=== PATIENT | male | born 1970 | race Hispanic/Latino ===

== ENCOUNTER 2017-06-28 04:13 | Inpatient (IN) | payer MEDICARE ==
[2017-06-28 04:41] LABS: BASO # 0.03 K/mm3 (0.0-2.0); BASO % 0.5 % (0.0-3.0); EOS % 0.3 % (1.5-5.0); GRAN # 3.82 (1.4-6.5); GRAN % 59.6 % (50.0-68.0); HEMOGLOBIN 14.5 g/dL (14.0-18.0); LYMPH # 2.1 (1.2-3.4); LYMPH % 32.9 % (22.0-35.0); MEAN CELL VOLUME 92.7 fl (80.0-105.0); MEAN CORPUSCULAR HEMOGLOBIN 31.9 pg (25.0-35.0); MEAN CORPUSCULAR HGB CONC 34.4 g/dl (31.0-37.0); MEAN PLATELET VOLUME 9.1 fl (7.0-11.0); MONO # 0.4 (0.1-0.6); MONO % 6.7 % (1.0-6.0); RBC 4.55 10^6/uL (3.5-6.1); RED CELL DISTRIBUTION WIDTH 13.3 % (11.5-14.5); WHITE BLOOD COUNT 6.4 10^3/ul (4.5-11.0)
[2017-06-28 04:51] LABS: ALB/GLOB RATIO 1.4 (1.1-1.8); ALT/SGPT 31 U/L (7-56); AST/SGOT 21 U/L (17-59); BLOOD UREA NITROGEN 7 mg/dL (7-21); CALCIUM 9.9 mg/dL (8.4-10.5); GFR AFRICAN-AMERICAN > 60; GFR NON-AFRICAN AMERICAN > 60
[2017-06-28] MEDS ORDERED: oxyCODONE 5 mg Immediate Release Tab PO STA (04:55)
[2017-06-28 05:03] LABS: TROPONIN I 0.06 ng/mL
--- NOTE | 2017-06-28 05:24 | ED PDOC ---
Arrival/HPI - General Chief Complaint: Chest Pain Time Seen by Provider: 06/28/17 04:16 Historian: Patient - History of Present Illness Narrative History of Present Illness (Text): 06/28/17 04:30 47 year old male, whose past medical history includes diabetes, presents to the Emergency department by EMS complaining of left sided chest pain since early this evening. Patient was give aspirin by EMS. Patient describes the pain as sharp sensation. Patient denies any recent travel or any sick contact. Patient reports a dry cough for the past couple days, but denies any fevers, chills, shortness of breath, abdominal pain, nausea, vomiting, diarrhea, back pain, neck pain, urinary/bowel changes, headache, dizziness, or any other complaint. PMD: Angel Baker MD Time/Duration: Other (early this evening) Symptom Onset: Sudden Quality: Other (sharp) Activities at Onset: Light Context: Home Past Medical History - Provider Review Nursing Documentation Reviewed: Yes - Infectious Disease Hx of Infectious Diseases: None - Tetanus Immunization Tetanus Immunization: Unknown - Past Medical History Past Medical History: No Previous - Cardiac Hx Hypertension: Yes - Pulmonary Hx Respiratory Disorders: Yes Hx Chronic Obstructive Pulmonary Disease (COPD): Yes - Endocrine/Metabolic Hx Endocrine Disorders: Yes Hx Diabetes Mellitus Type 2: Yes - Musculoskeletal/Rheumatological Hx Musculoskeletal Disorders: Yes Hx Back Pain: Yes - Psychiatric Hx Depression: No Hx Emotional Abuse: No Hx Physical Abuse: No Hx Substance Use: No - Past Surgical History Past Surgical History: No Previous - Surgical History Hx Orthopedic Surgery: Yes - Suicidal Assessment Feels Threatened In Home Enviroment: No Family/Social History - Physician Review Nursing Documentation Reviewed: Yes Family/Social History: No Known Family HX Smoking Status: Heavy Smoker > 10 Cigarettes Daily Hx Alcohol Use: Yes Hx Substance Use: No Hx Substance Use Treatment: No Allergies/Home Meds Allergies/Adverse Reactions: Allergies No Known Allergies Allergy (Verified 08/02/16 13:01) Home Medications: Home Meds Medication Instructions Recorded Confirmed Baclofen [Baclofen] 10 mg PO DAILY 04/14/13 06/28/17 Ropinirole Hydrochloride [Requip] 1 mg PO DAILY 04/14/13 06/28/17 Buprenorphine HCl [Belbuca] 150 mcg BC DAILY 04/25/17 06/28/17 DULoxetine [Cymbalta] 30 mg PO DAILY 04/25/17 06/28/17 Gabapentin [Neurontin] 300 mg PO TID 04/25/17 06/28/17 Glipizide [Glipizide Xl] 5 mg PO DAILY 04/25/17 06/28/17 Losartan [Cozaar] 50 mg PO DAILY 04/25/17 06/28/17 Pantoprazole Sodium [Protonix] 40 mg PO DAILY 04/25/17 06/28/17 Pravastatin Sodium [Pravachol] 20 mg PO DAILY 04/25/17 06/28/17 lamoTRIgine [LaMICtal] 25 mg PO DAILY 04/25/17 06/28/17 oxyCODONE/Acetaminophen [Percocet 1 tab PO Q6 PRN 04/25/17 06/28/17 5/325 mg Tab] rOPINIRole [Requip] 2 mg PO DAILY 04/25/17 06/28/17 tiZANidine [Zanaflex] 4 mg PO TID 04/25/17 06/28/17 Review of Systems - Physician Review All systems were reviewed & negative as marked: Yes - Review of Systems Constitutional: absent: Fevers, Other (Chills) Respiratory: Cough. absent: SOB Cardiovascular: Chest Pain Gastrointestinal: absent: Abdominal Pain, Diarrhea, Nausea Genitourinary Male: absent: Dysuria, Frequency, Hematuria Musculoskeletal: absent: Back Pain, Neck Pain Neurological: absent: Headache, Dizziness Physical Exam Vital Signs Reviewed: Yes Vital Signs Temp Pulse Resp BP Pulse Ox 06/28/17 04:27 98.2 F 74 16 148/109 H 96 Temperature: Afebrile Blood Pressure: Normal Pulse: Regular Respiratory Rate: Normal Appearance: Positive for: Well-Appearing, Non-Toxic, Comfortable Pain Distress: None Mental Status: Positive for: Alert and Oriented X 3 Finger Stick Blood Glucose: 158 - Systems Exam Head: Present: Atraumatic, Normocephalic Pupils: Present: PERRL Extroacular Muscles: Present: EOMI Conjunctiva: Present: Normal Mouth: Present: Moist Mucous Membranes Neck: Present: Normal Range of Motion Respiratory/Chest: Present: Clear to Auscultation, Good Air Exchange. No: Respiratory Distress, Accessory Muscle Use Cardiovascular: Present: Regular Rate and Rhythm, Normal S1, S2. No: Murmurs Abdomen: Present: Normal Bowel Sounds. No: Tenderness, Distention, Peritoneal Signs Back: Present: Normal Inspection Upper Extremity: Present: Normal Inspection. No: Cyanosis, Edema Lower Extremity: Present: Normal Inspection. No: Edema Neurological: Present: GCS=15, CN II-XII Intact, Speech Normal Skin: Present: Warm, Dry, Normal Color. No: Rashes Psychiatric: Present: Alert, Oriented x 3, Normal Insight, Normal Concentration Medical Decision Making ED Course and Treatment: 06/28/17 04:30 Impression: 47 year old male presents complaining of sharp left sided chest pain that began early this evening. Plan: -- EKG -- Labs -- Flexeril -- CXR -- oxycodone -- Reassess and disposition Progress Notes: EKG shows Sinus at 75 BPM Interpreted by me. CXR Impression: As read by meNAD. . - Lab Interpretations Lab Results: 06/28/17 04:30 06/28/17 04:30 Lab Results 06/28/17 04:30: Sodium 142, Potassium 4.0, Chloride 103, Carbon Dioxide 26, Anion Gap 17, BUN 7, Creatinine 0.8, Est GFR ( Amer) > 60, Est GFR (Non- Af Amer) > 60, Random Glucose 153 H, Calcium 9.9, Magnesium 2.0, Total Bilirubin 0.3, AST 21, ALT 31, Alkaline Phosphatase 67, Lactate Dehydrogenase 445, Total Creatine Kinase 82, Troponin I 0.06, Total Protein 6.9, Albumin 4.0, Globulin 2.9, Albumin/Globulin Ratio 1.4 06/28/17 04:30: WBC 6.4, RBC 4.55, Hgb 14.5, Hct 42.2, MCV 92.7, MCH 31.9, MCHC 34.4, RDW 13.3, Plt Count 185, MPV 9.1, Gran % 59.6, Lymph % (Auto) 32.9, [place] % (Auto) 6.7 H, Eos % (Auto) 0.3 L, Baso % (Auto) 0.5, Gran # 3.82, Lymph # 2.1 , [place] # 0.4, Eos # 0.0, Baso # 0.03 I have reviewed the lab results: Yes - RAD Interpretation Radiology Orders: 06/28/17 04:29 CHEST PORTABLE [RAD] Stat - EKG Interpretation Interpreted by ED Physician: Yes Type: 12 lead EKG - Medication Orders Current Medication Orders: Discontinued Medications Cyclobenzaprine HCl (Flexeril) 5 mg PO STAT STA Stop: 06/28/17 04:56 Last Admin: 06/28/17 05:08 Dose: 5 mg Oxycodone HCl (Oxycodone Immediate Release Tab) 5 mg PO STAT STA Stop: 06/28/17 04:56 Last Admin: 06/28/17 05:08 Dose: 5 mg MAR Pain Assessment Document 06/28/17 05:08 RD (Rec: 06/28/17 05:08 RD [id number]) Pain Reassessment Is this a pain reassessment? No Sleep Is patient sleeping during reassessment? No Presence of Pain Presence of Pain Yes - Scribe Statement The provider has reviewed the documentation as recorded by the Fatimah Manzo Provider Scribe Attestation: All medical record entries made by the Scribe were at my direction and personally dictated by me. I have reviewed the chart and agree that the record accurately reflects my personal performance of the history, physical exam, medical decision making, and the department course for this patient. I have also personally directed, reviewed, and agree with the discharge instructions and disposition. Disposition/Present on Arrival - Present on Arrival History of DVT/PE: No History of Uncontrolled Diabetes: No Urinary Catheter: No History of Decub. Ulcer: No History Surgical Site Infection Following: None - Disposition Referrals: Angel Baker MD [Primary Care Provider] - Follow up with primary Forms: [facility] (Romanian)
[2017-06-28] MEDS ORDERED: HYDROmorphone 1 mg/ml ISec IVP STA (07:03)
--- NOTE | 2017-06-28 07:36 | ED PDOC ---
Physical Exam Vital Signs Reviewed: Yes Vital Signs Temp Pulse Resp BP Pulse Ox 06/28/17 07:23 81 20 154/98 H 94 L 06/28/17 04:27 98.2 F 74 16 148/109 H 96 Temperature: Afebrile Blood Pressure: Hypertensive Appearance: Positive for: Uncomfortable Pain Distress: Severe Mental Status: Positive for: Alert and Oriented X 3 Finger Stick Blood Glucose: 158 - Systems Exam Respiratory/Chest: Present: Clear to Auscultation. No: Respiratory Distress, Wheezes Medical Decision Making ED Course and Treatment: 06/28/17 07:32 Patient is a 47 yo male endorsed to me from previous shift. I reviewed previous studies, EKG and cxr. I re-examined patient and interviewed him. He reports to me sudden onset of left sided chest pain that woke him up from sleep. Pain is currently severe and "comes and goes". On my exam, lungs clear, no hypoxia. BP and pulse equal in both upper extremities. Pain is not palpable. Initial EKG is unremarkable although troponin is 0.06. Patient received asa prior to arrival. Due to persistent severe pain, will order ct angio as pain persistent. Mediastinum unremarkable on cxr. IV pain medication ordered. I reviewed history with family present. Patient is a smoker and a diabetic. Recent unremarkable stress test. Due to persistent pain will admit to telemetry hospitalist service, covering for Dr. Baker his PMD. Will consult his optical scientist Dr. Justin. Treatment plan reviewed with patient and family, agreeable to disposition plan. Case d/w Dr. Arizmendi. - Lab Interpretations Lab Results: 06/28/17 04:30 06/28/17 04:30 Lab Results 06/28/17 04:30: Sodium 142, Potassium 4.0, Chloride 103, Carbon Dioxide 26, Anion Gap 17, BUN 7, Creatinine 0.8, Est GFR ( Amer) > 60, Est GFR (Non- Af Amer) > 60, Random Glucose 153 H, Calcium 9.9, Magnesium 2.0, Total Bilirubin 0.3, AST 21, ALT 31, Alkaline Phosphatase 67, Lactate Dehydrogenase 445, Total Creatine Kinase 82, Troponin I 0.06, Total Protein 6.9, Albumin 4.0, Globulin 2.9, Albumin/Globulin Ratio 1.4 06/28/17 04:30: WBC 6.4, RBC 4.55, Hgb 14.5, Hct 42.2, MCV 92.7, MCH 31.9, MCHC 34.4, RDW 13.3, Plt Count 185, MPV 9.1, Gran % 59.6, Lymph % (Auto) 32.9, [place] % (Auto) 6.7 H, Eos % (Auto) 0.3 L, Baso % (Auto) 0.5, Gran # 3.82, Lymph # 2.1 , [place] # 0.4, Eos # 0.0, Baso # 0.03 - RAD Interpretation Radiology Orders: 06/28/17 04:29 CHEST PORTABLE [RAD] Stat 06/28/17 07:25 ANGIO CHEST PE PROTOCOL [CT] Stat - Medication Orders Current Medication Orders: Discontinued Medications Cyclobenzaprine HCl (Flexeril) 5 mg PO STAT STA Stop: 06/28/17 04:56 Last Admin: 06/28/17 05:08 Dose: 5 mg Hydromorphone HCl (Dilaudid) 1 mg IVP STAT STA Stop: 06/28/17 07:04 Last Admin: 06/28/17 07:20 Dose: 1 mg CHANELL Pain Assessment Document 06/28/17 07:20 [email or web address] (Rec: 06/28/17 07:23 [email or web address] [id number]) Pain Reassessment Is this a pain reassessment? No Sleep Is patient sleeping during reassessment? No Presence of Pain Presence of Pain Yes Pain Scale Used Pain Scale Used Numeric Location Pain Location Body Site Generalized Description Description Constant Intensity of Pain at present 6 Pain Behavior Guarding Facial Grimacing Aggravating Factors Changing Position Alleviating Factors/Management Position Change Techniques Alleviating Factors Medication IVP Administration Document 06/28/17 07:20 [email or web address] (Rec: 06/28/17 07:23 [email or web address] [id number]) Charges for Administration # of IVP Administrations 1 Oxycodone HCl (Oxycodone Immediate Release Tab) 5 mg PO STAT STA Stop: 06/28/17 04:56 Last Admin: 06/28/17 05:08 Dose: 5 mg MAR Pain Assessment Document 06/28/17 05:08 RD (Rec: 06/28/17 05:08 RD [id number]) Pain Reassessment Is this a pain reassessment? No Sleep Is patient sleeping during reassessment? No Presence of Pain Presence of Pain Yes Disposition/Present on Arrival - Present on Arrival Any Indicators Present on Arrival: No History of DVT/PE: No History of Uncontrolled Diabetes: No Urinary Catheter: No History of Decub. Ulcer: No History Surgical Site Infection Following: None - Disposition Have Diagnosis and Disposition been Completed?: Yes Diagnosis: Chest pain Disposition: HOSPITALIZED Disposition Time: 07:36 Patient Plan: Admission, Telemetry Condition: FAIR Discharge Instructions (ExitCare): Chest Pain (ED) Referrals: Angel Baker MD [Primary Care Provider] - Follow up with primary Forms: [facility] (Kiswahili)
[2017-06-28] MEDS ORDERED: Oxycodone/Acetaminophen 5/325 mg Tab PO PRN (08:27)
--- NOTE | 2017-06-28 08:42 | CT ---
PROCEDURE: CT Chest with contrast (Pulmonary Angiogram) HISTORY: r/o PE COMPARISON: Plain radiographs performed earlier the same day. TECHNIQUE: Axial computed tomography images were obtained of the chest in the pulmonary arterial phase of enhancement. Coronal and sagittal reformatted images were created and reviewed. Intravenous contrast dose: 150 mL Omnipaque 350 Radiation dose: Total exam DLP = 469.03 mGy-cm. This CT exam was performed using one or more of the following dose reduction techniques: Automated exposure control, adjustment of the mA and/or kV according to patient size, and/or use of iterative reconstruction technique. FINDINGS: PULMONARY ARTERIES: Examination is of suboptimal diagnostic quality for evaluation of pulmonary embolism due to missed bolus. Allowing for this, there is no large central pulmonary embolism. AORTA: No evidence of dissection. No thoracic aortic aneurysm. LUNGS: The lungs are well inflated. There is dependent atelectasis in the posterior lower lobes. There is a bulla in the superior segment of the right lower lobe. No evidence of suspicious nodule, mass or consolidation there are no endobronchial lesions. PLEURAL SPACES: No pleural effusions or pneumothorax. HEART: The heart is normal in size. No pericardial effusion. There atherosclerotic calcifications in the left anterior descending coronary artery LYMPH NODES: No pathologic lymphadenopathy. BONES, CHEST WALL: Within normal limits for the patient's age. No fracture or destructive lesion OTHER FINDINGS: There is apparent mild circumferential mural thickening in the distal esophagus. The adrenal glands are normal. No other significant abnormality in the visualized abdomen. IMPRESSION: 1. Examination is of suboptimal diagnostic quality for evaluation of pulmonary embolism due to missed bolus. Allowing for this, no large central pulmonary embolism. 2. No evidence of consolidation, pleural effusion or pneumothorax. 3. Apparent circumferential mural thickening in the distal esophagus is nonspecific and could be related to underdistention however nonspecific esophagitis cannot be excluded. If clinically indicated, please correlate with EGD.
--- NOTE | 2017-06-28 08:44 | CP.PCM.HP ---
Addendum entered and electronically signed by Pablito Ding DO 06/28/17 09: 58: Patient reevaluated with active chest pain. 2nd troponin elevated. Will start patient on Plavix, Heparin drip, metoprolol, and Morphine prn for chest pain. Echocardiogram ordered. Nursing staff placed call to [employer]ing Machine [employer]. Original Note: <Pablito Ding - Last Filed: 06/28/17 08:45> History of Present Illness - History of Present Illness History of Present Illness: 47 year old male with past medical history of hypertension, diabetes, and dyslipidemia presents with sudden onset chest pain 4 hours ago. Patient states she was awoken from sleep with severe left sided chest pain that radiated to his jaw and back. Pain is intermittent in nature. Pain is alleviated by pain medication prescribed to the patient. He has never had a pain like this before. Patient immediately called the ambulance and was brought to the hospital. Patient received Aspirin in the ambulance. Patient is being followed by Dr. Justin as an outpatient. Patient recently had a normal stress test 2 months ago. Patient also had an echocardiogram which demonstrated an EF of 61% and no acute abnormalities. 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 Denies current chest pain, shortness of breath , nausea, vomiting, diarrhea, changes in vision, double vision, fever, chills, urinary/bladder incontinence, dysuria. PMD: Dr. Baker Pharmacy: [facility] in [place] Past Medical History: Hypertension, diabetes, and dyslipidemia Surgical history: Back surgery, right fibula fracture surgery Family medical history: Hypertension Social history: Current smoker, denies alcohol or illicit drug use Allergies: None Medications: Reviewed, as per MAR Present on Admission - Present on Admission Any Indicators Present on Admission: No Review of Systems - Review of Systems Review of Systems: 12 point ROS as per HPI, otherwise negative Past Patient History - Infectious Disease Hx of Infectious Diseases: None - Tetanus Immunizations Tetanus Immunization: Unknown - Past Social History Smoking Status: Heavy Smoker > 10 Cigarettes Daily - CARDIAC Hx Hypertension: Yes - PULMONARY Hx Respiratory Disorders: Yes Hx Chronic Obstructive Pulmonary Disease (COPD): Yes - ENDOCRINE/METABOLIC Hx Endocrine Disorders: Yes Hx Diabetes Mellitus Type 2: Yes - MUSCULOSKELETAL/RHEUMATOLOGICAL Hx Musculoskeletal Disorders: Yes Hx Back Pain: Yes - PSYCHIATRIC Hx Depression: No Hx Emotional Abuse: No Hx Physical Abuse: No Hx Substance Use: No - SURGICAL HISTORY Hx Orthopedic Surgery: Yes Meds Allergies/Adverse Reactions: Allergies Allergy/AdvReac Type Severity Reaction Status Date / Time No Known Allergies Allergy Verified 08/02/16 13:01 Physical Exam - Constitutional Appears: Non-toxic, No Acute Distress - Head Exam Head Exam: ATRAUMATIC, NORMAL INSPECTION, NORMOCEPHALIC - Eye Exam Eye Exam: EOMI, Normal appearance - ENT Exam ENT Exam: Mucous Membranes Moist, Normal Exam - Neck Exam Neck exam: Positive for: Normal Inspection. Negative for: Lymphadenopathy - Respiratory Exam Respiratory Exam: Decreased Breath Sounds, NORMAL BREATHING PATTERN. absent: Chest Wall Tenderness, Rales, Rhonchi, Wheezes - Cardiovascular Exam Cardiovascular Exam: RRR, +S1, +S2 - GI/Abdominal Exam GI & Abdominal Exam: Normal Bowel Sounds, Soft. absent: Tenderness - Extremities Exam Extremities exam: Positive for: normal inspection. Negative for: calf tenderness, pedal edema - Expanded Neurological Exam Expanded Neuro motor strength exam: Left Upper Extremity: 5, Right Upper Extremity: 5, Left Lower Extremity: 2/1, Right Lower Extremity: 3 - Psychiatric Exam Psychiatric exam: Normal Affect, Normal Mood - Skin Skin Exam: Intact, Normal Color, Warm Results - Vital Signs Recent Vital Signs: Last Vital Signs Temp 98.2 F 06/28/17 04:27 Pulse 81 06/28/17 07:23 Resp 20 06/28/17 07:23 BP 154/98 H 06/28/17 07:23 Pulse Ox 94 L 06/28/17 07:23 - Labs Result Diagrams: 06/28/17 04:30 06/28/17 04:30 Labs: Laboratory Results - last 24 hr 06/28/17 06/28/17 06/28/17 04:27 04:30 04:30 WBC 6.4 RBC 4.55 Hgb 14.5 Hct 42.2 MCV 92.7 MCH 31.9 MCHC 34.4 RDW 13.3 Plt Count 185 MPV 9.1 Gran % 59.6 Lymph % (Auto) 32.9 [place] % (Auto) 6.7 H Eos % (Auto) 0.3 L Baso % (Auto) 0.5 Gran # 3.82 Lymph # 2.1 Powell # 0.4 Eos # 0.0 Baso # 0.03 Sodium 142 Potassium 4.0 Chloride 103 Carbon Dioxide 26 Anion Gap 17 BUN 7 Creatinine 0.8 Est GFR ( Amer) > 60 Est GFR (Non-Af Amer) > 60 POC Glucose (mg/dL) 158 H Random Glucose 153 H Calcium 9.9 Magnesium 2.0 Total Bilirubin 0.3 AST 21 ALT 31 Alkaline Phosphatase 67 Lactate Dehydrogenase 445 Total Creatine Kinase 82 Troponin I 0.06 Total Protein 6.9 Albumin 4.0 Globulin 2.9 Albumin/Globulin Ratio 1.4 Assessment & Plan - Assessment and Plan (Free Text) Plan: 47 year old male with past medical history of hypertension, diabetes, and dyslipidemia presents with chest pain rule out ACS. Patient also received CTA of the chest in the ED to evaluate for a PE, final results pending, will follow up. Patient will have Dr. Justin consulted, as he sees him as an outpatient. Will trend troponins at this time. 1. Chest pain r/o ACS Initial troponin indeterminate, 0.06, will trend EKG is NSR with no ST abnormalities Nitroglycerin added for chest pain prn Lipid panel ordered Cardiology consulted, Dr. Justin 2. Diabetes Hold home antihyperglycemics Insulin sliding scale Continue Cymbalta and Neurontin HgA1c ordered 3. Dyslipidemia Atorvastatin started Lipid panel ordered 4. Hypertension Continue Cozaar 5. Chronic back pain Continue Percocet and Lamictal Continue Tizanidine 6. Tobacco use Counseled on abstinence Nicotine patch ordered 7. Prophylaxis Protonix Heparin Timur, PGY-2 <Raven Arizmendi - Last Filed: 06/28/17 16:38> Results - Vital Signs Recent Vital Signs: Last Vital Signs Temp 97.8 F 06/28/17 13:20 Pulse 78 06/28/17 16:05 Resp 20 06/28/17 16:05 BP 148/88 06/28/17 16:05 Pulse Ox 95 06/28/17 09:00 - Labs Result Diagrams: 06/28/17 04:30 06/28/17 04:30 Labs: Laboratory Results - last 24 hr 06/28/17 06/28/17 06/28/17 08:05 08:05 14:10 POC Glucose (mg/dL) 99 Troponin I 0.13 H* D Triglycerides 129 Cholesterol 149 LDL Cholesterol Direct 101 HDL Cholesterol 32 06/28/17 16:05 POC Glucose (mg/dL) 131 H Troponin I Triglycerides Cholesterol LDL Cholesterol Direct HDL Cholesterol Attending/Attestation - Attestation I have personally seen and examined this patient.: Yes I have fully participated in the care of the patient.: Yes I have reviewed all pertinent clinical information: Yes Notes (Text): 06/28/17 16:34 Patient was seen and examined with caregivers non medical. Agreed with assessment and plan. 47 year old male with past medical history of hypertension, diabetes, hyperlipidemia , and chronic back pain is admitted with chest pain , found to have NSEMI, started asa/Plavix/Metoprolol/lipitor and IV heparin.Patient was evaluated by cardiology Dr.Peter Rich and underwent cardiac catherization, and had LAD stent placed.We will monitor patient in telemetry. Management plan was discussed in detail with patient. Education was provided.
[2017-06-28 09:05] LABS: HDL CHOLESTEROL 32 mg/dL (29-60)
--- NOTE | 2017-06-28 09:05 | RAD ---
HISTORY: Chest pain COMPARISON: 08/21/2015. FINDINGS: LUNGS: The lungs are hyperinflated and there is peribronchial thickening with chronic changes in both lungs. There is no focal consolidation. PLEURA: No significant pleural effusion identified, no pneumothorax apparent. CARDIOVASCULAR: Normal. OSSEOUS STRUCTURES: No significant abnormalities. VISUALIZED UPPER ABDOMEN: Normal. OTHER FINDINGS: None. IMPRESSION: No active pulmonary disease. COPD.
[2017-06-28 09:16] LABS: LDL CHOLESTEROL 101 mg/dL (0-129)
[2017-06-28] MEDS ORDERED: Morphine 5 MG/ML SYRINGE IVP PRN (10:00)
[2017-06-28] MEDS ORDERED: Heparin25000 units/250ml 1/2NS 25,000 UNITS/250 ML BAG IV SCH (10:00)
[2017-06-28 10:57] VITALS: BMI 37.0
[2017-06-28] MEDS ORDERED: Eptifibatide 20 mg/10mL Inj IVP ONE ×3 (11:04→11:11)
[2017-06-28] MEDS ORDERED: Phenylephrine 10 mg/ml Inj ONE (11:06)
[2017-06-28] MEDS ORDERED: Lidocaine 2% Inj (20ml) ONE (11:06)
[2017-06-28] MEDS ORDERED: HEPARIN SODIUM/NS 1,000 ML IV ONE (11:07)
[2017-06-28] MEDS ORDERED: Iodixanol 320 MG/ML 200 ML BOTTLE IV ONE (11:07)
[2017-06-28] MEDS ORDERED: Iodixanol 320 MG/ML 100 ML BOTTLE IV ONE (11:07)
[2017-06-28] MEDS ORDERED: Iohexol 350mgl/ml 50 ML ONE (11:07)
[2017-06-28] MEDS ORDERED: Nitroglycerin 50mg in D5W 0 MG/0 ML BOTTLE IV ONE (11:07)
[2017-06-28] MEDS ORDERED: Midazolam 2 MG/2 ML VIAL ONE ×2 (11:07→11:31)
[2017-06-28] MEDS ORDERED: Eptifibatide 0.75 mg/ml 75 MG/100 ML BOTTLE IV SCH (11:15)
[2017-06-28] MEDS: Insulin Reg-MEDIUM-Coverage SC SCH ×3 (11:52→21:47)
[2017-06-28] MEDS ORDERED: Sodium Chloride 0.9% 1,000 ML IV SCH (13:15)
[2017-06-28] MEDS ORDERED: Morphine 2 mg/ml ISec IVP STA (14:28)
[2017-06-28] MEDS ORDERED: Morphine 5 MG/ML SYRINGE IVP STA (14:35)
--- NOTE | 2017-06-28 15:40 | CARD ---
APPROVED REPORT EKG Measurement Heart [id number] [place] 146P0 [id number] <Conclusion> Normal sinus rhythm Normal ECG
--- NOTE | 2017-06-28 15:47 | CARD ---
APPROVED REPORT EKG Measurement Heart [id number] <Conclusion> Normal sinus rhythm Cannot rule out Anterior infarct, age undetermined Abnormal ECG
--- NOTE | 2017-06-28 15:54 | CARD ---
APPROVED REPORT EKG Measurement Heart [id number] <Conclusion> Normal sinus rhythm Normal ECG
[2017-06-28] MEDS: Oxycodone/Acetaminophen 10/325 mg Tab PO PRN (19:49)
[2017-06-28] MEDS: BUPRENORPHINE 150 MCG SL SCH (21:38)
--- NOTE | 2017-06-29 00:58 | CARDCATH ---
PROCEDURE DATE: 06/29/2017 HISTORY The patient is a 47-year-old male who was an active smoker and suffers from hypertension and diabetes mellitus who presents with unstable angina. This morning, the patient continues to experience angina at rest. His troponins are found to be elevated. The patient was brought to the [facility] under emergency conditions. In the [facility], the patient developed chest pain with evidence for ST elevations, it was done under emergency conditions. PROCEDURE: Left heart catheterization with coronary arteriography and left ventriculogram followed by PTCA and stent of two lesions in the LAD. The right femoral artery was cannulated with a 6-Lithuanian sheath. There were no complications. The findings on catheterization revealed a left main artery that was unremarkable. The circumflex artery and obtuse marginal branches were free of significant disease. The LAD in its proximal portion revealed 80% stenosis. This was followed by a tandem lesion at the takeoff of a diagonal vessel which revealed a 99% stenosis with an intracoronary thrombus noted. The right coronary artery was selectively cannulized and found to be a dominant vessel. The RCA was free of significant disease. LV function revealed hypokinetic anterior apical segment. The EF is estimated to be approximately 35% to 40%. The patient was started on intravenous Integrilin, IV Angiomax. On the fluoroscopic guide, the guiding catheter was placed in the ostium of the left main artery. An 0.014 ATW wire was used to cross both lesions in the LAD. A second wire was placed into the diagonal vessel. A 2.0 balloon was utilized to predilate the lesions, proximal and mid. A 3.5 x 9 mm drug-eluting stent was placed and deployed in the mid LAD and a 3.5 x 12 mm drug-eluting stent was placed and deployed in the proximal lesion. Repeat coronary arteriography revealed an excellent result with no residual stenosis and INDY-3 flow down the LAD. There was pinching of the ostium of the diagonal vessels through the mid LAD stent. However, there was INDY-3 flow down the diagonal vessel with expectations of return of flow down the diagonal vessel. The patient tolerated the procedure well. Angio-Seal was used to close the femoral artery site. The AngioSeal did not result in full hemostasis and manual compression was used to finish hemostasis. ADDENDUM I performed moderate sedation which included the presence of an independent trained observer that assisted in monitoring the patient's level of consciousness and physiologic status. After administration of Versed and fentanyl, my intra-service time was 30 minutes. In summary, the procedure was an emergency cardiac cath and PTCA. The PTCA was successful of 2 cortical lesions in the proximal and mid LAD with evidence of intracoronary thrombus. Cardiac catheterization revealed single-vessel CAD with two critical lesions in the LAD with evidence of intracoronary thrombus as well as an anterior apical wall motion abnormality with an EF of approximately 35% to 40%. Given these findings, the patient will need to remain on aspirin and Plavix. The Integrilin and the Angiomax were discontinued immediately once hemostasis was not obtained with AngioSeal. The patient was transferred to the floor in stable condition. Cesar West MD
[2017-06-29] MEDS: Oxycodone/Acetaminophen 10/325 mg Tab PO PRN ×4 (02:28→20:24)
[2017-06-29] MEDS ORDERED: Pantoprazole 40 mg EC Tab PO SCH (06:00)
[2017-06-29 07:41] LABS: HEMOGLOBIN 15.8 g/dL (14.0-18.0); MEAN CORPUSCULAR HEMOGLOBIN 31.7 pg (25.0-35.0); MEAN CORPUSCULAR HGB CONC 34.8 g/dl (31.0-37.0); MEAN PLATELET VOLUME 9.4 fl (7.0-11.0); RBC 4.99 10^6/uL (3.5-6.1); RED CELL DISTRIBUTION WIDTH 13.3 % (11.5-14.5); WHITE BLOOD COUNT 11.6 10^3/ul (4.5-11.0)
[2017-06-29] MEDS: Insulin Reg-MEDIUM-Coverage SC SCH ×4 (08:10→21:28)
[2017-06-29 08:28] LABS: ALB/GLOB RATIO 1.3 (1.1-1.8); ALBUMIN 4.2 g/dL (3.0-4.8); ALT/SGPT 31 U/L (7-56); AST/SGOT 44 U/L (17-59); BLOOD UREA NITROGEN 8 mg/dL (7-21); GFR AFRICAN-AMERICAN > 60; GFR NON-AFRICAN AMERICAN > 60
[2017-06-29] MEDS: BUPRENORPHINE 150 MCG SL SCH ×2 (09:18→22:18)
--- NOTE | 2017-06-29 11:35 | PN ---
DATE: 06/29/2017 CARDIOLOGY FOLLOWUP SUBJECTIVE: The patient is chest pain free. PHYSICAL EXAMINATION: VITAL SIGNS: Blood pressure is 126/65, heart rate in the 80s. NECK: Negative JVD. LUNGS: Without rales. HEART: S1, S2. ABDOMEN: The right groin site reveals mild ecchymoses without ischemia noted. LABORATORY DATA: Reveals hemoglobin of 15.8. Chemistries, BUN and creatinine unremarkable. Troponins peaked at 3.02. IMPRESSION: 1. Status post non-ST elevation myocardial infarction. 2. Status post emergency percutaneous transluminal coronary angioplasty and stent of 2 lesions in the left anterior descending with intracoronary thrombus. 3. Coronary artery disease. 4. Hypercholesterolemia. PLAN: Given these findings, the patient had difficulty urinating yesterday. We will DC his [place] today. We will begin ambulation. Cesar West MD
--- NOTE | 2017-06-29 14:20 | CP.PCM.PN ---
<Ham Nix - Last Filed: 06/29/17 14:10> Subjective - Date & Time of Evaluation Date of Evaluation: 06/29/17 Time of Evaluation: 14:10 - Subjective Subjective: Medicine Progress Note: Patient seen and assessed at bedside. Patient reports that overnight, he found it difficult to refrain from moving, as he has chronic LBP and lying down exacerbates this pain. For this he was given a stat dose of Xanax to prevent irritation and possible hematoma formation at right groin cath insertion site Currently, however, he denies any LBP or any other complaints. He denies fever, chills, headache, chest pain, palpitations, SOB, cough, abdominal pain, N/V/D/C , burning/pain with urination, or any skin changes. Objective - Vital Signs/Intake and Output Vital Signs (last 24 hours): Temp Pulse Resp BP Pulse Ox 98.1 F 82 20 132/79 94 L 06/29/17 11:57 06/29/17 11:57 06/29/17 11:57 06/29/17 11:57 06/29/17 06:00 Intake and Output: 06/29/17 06/29/17 06:59 18:59 Intake Total 240 Output Total 3200 Balance -2960 - Medications Medications: Current Medications Aspirin (Ecotrin) 81 mg PO DAILY [facility] Last Admin: 06/29/17 09:18 Dose: 81 mg Atorvastatin Calcium (Lipitor) 40 mg PO DIN [facility] Last Admin: 06/28/17 17:44 Dose: 40 mg Clopidogrel Bisulfate (Plavix) 75 mg PO DAILY [facility] Last Admin: 06/29/17 09:18 Dose: 75 mg Duloxetine HCl (Cymbalta) 30 mg PO DAILY [facility] Last Admin: 06/29/17 09:18 Dose: 30 mg Gabapentin (Neurontin) 800 mg PO TID [facility] PRN Reason: Protocol Last Admin: 06/29/17 01:31 Dose: 800 mg Home Med (Home Med) 1 unit SL Q12 [facility] Last Admin: 06/29/17 09:18 Dose: 1 unit Insulin Human Regular (Humulin R Med) 0 units SC ACHS [facility] PRN Reason: Protocol Last Admin: 06/29/17 11:54 Dose: Not Given Lamotrigine (Lamictal) 25 mg PO DAILY [facility] PRN Reason: Protocol Last Admin: 06/29/17 09:18 Dose: 25 mg Losartan Potassium (Cozaar) 50 mg PO DAILY [facility] Last Admin: 06/29/17 09:19 Dose: 50 mg Metoprolol Tartrate (Lopressor) 25 mg PO BID [facility] Last Admin: 06/29/17 09:19 Dose: 25 mg Nicotine (Nicoderm Cq) 1 patch TD DAILY [facility] Last Admin: 06/29/17 09:16 Dose: 1 patch Ondansetron HCl (Zofran Inj) 4 mg IVP Q4H PRN PRN Reason: Nausea/Vomiting Oxycodone/Acetaminophen (Percocet 10/325 Mg Tab) 1 tab PO Q6H PRN PRN Reason: Pain, moderate (4-7) Last Admin: 06/29/17 08:18 Dose: 1 tab Tizanidine HCl (Zanaflex) 4 mg PO TID [facility] Last Admin: 06/29/17 09:18 Dose: 4 mg - Labs Labs: 06/29/17 06:30 06/29/17 06:30 - Constitutional Appears: Non-toxic, No Acute Distress - Head Exam Head Exam: ATRAUMATIC, NORMAL INSPECTION, NORMOCEPHALIC - Eye Exam Eye Exam: EOMI, Normal appearance, PERRL. absent: Conjunctival injection, Nystagmus, Periorbital swelling, Periorbital tenderness, Scleral icterus Pupil Exam: NORMAL ACCOMODATION, PERRL - ENT Exam ENT Exam: Mucous Membranes Moist, Normal Exam - Neck Exam Neck Exam: Full ROM, Normal Inspection. absent: Lymphadenopathy - Respiratory Exam Respiratory Exam: Clear to Ausculation Bilateral, NORMAL BREATHING PATTERN. absent: Accessory Muscle Use, Chest Wall Tenderness, Decreased Breath Sounds, Prolonged Expiratory Phase, Rales, Rhonchi, Wheezes, Respiratory Distress, Stridor - Cardiovascular Exam Cardiovascular Exam: REGULAR RHYTHM, RRR, +S1, +S2. absent: Bradycardia, Tachycardia, Clicks, Diastolic murmur, Gallop, Irregular Rhythm, JVD, Rubs, +S4 , Murmur - GI/Abdominal Exam GI & Abdominal Exam: Soft, Normal Bowel Sounds. absent: Bruit, Distended, Firm , Guarding, Rigid, Tenderness, Diminished Bowel Sounds, Hernia, Hyperactive Bowel Sounds, Hypoactive Bowel Sounds, Organomegaly, Pulsatile Mass, Rebound, Mass - Extremities Exam Extremities Exam: Full ROM, Normal Capillary Refill. absent: Calf Tenderness, Joint Swelling, Normal Inspection, Pedal Edema, Tenderness Additional comments: Right groin cath insertion site with no signs of surrounding infection or hematoma but surrounding ecchymosis noted - Back Exam Back Exam: Full ROM, NORMAL INSPECTION. absent: CVA tenderness (L), CVA tenderness (R), muscle spasm, paraspinal tenderness, rash noted, tenderness, vertebral tenderness - Neurological Exam Neurological Exam: Alert, Awake, CN II-XII Intact, Oriented x3 - Psychiatric Exam Psychiatric exam: Normal Affect, Normal Mood - Skin Skin Exam: Dry, Intact, Normal Color, Warm Assessment and Plan - Assessment and Plan (Free Text) Assessment: 47 year old male with past medical history significant for HTN, DM2 and HLD who presents with NSTEMI. Patient received CTA of the chest in the ED to evaluate for a PE and was found to have no PE. Patient underwent cardiac cath with two ANTONIA placed in LAD by Dr. West. Plan: 1. NSTEMI -EKG showed signs of anterior infarct -Serial troponins found to be elevated at 0.06, 0.13, 3.02 and 2.97 -Cardiac Cath with Dr. West who placed two ANTONIA in LAD -Continue ASA, Plavix, and Lopressor -Continue wound care with pressure dressing to right groin cath insertion site -Cardiology consulted, all recommendations appreciated 2. DM2 with associate Diabetic Neuropathy -SSI-Medium and Accuchecks ACHS -Carbohydrate Consistent Diet -Continue Neurontin and Cymbalta -A1c 7.1 3. HTN -Continue Cozaar 4. HLD -Continue Lipitor -Lipid panel within normal limits 5. Chronic LBP -Continue Percocet, Lamictal and Tizanidine 6. Tobacco Abuse/Withdrawal -Nicotine CQ 14mg/day -Abstinence counseling GI Prophylaxis: Protonix DVT Prophylaxis: Heparin Patient seen and case discussed with attending, Dr. Arizmendi. <Raven Arizmendi - Last Filed: 06/29/17 15:11> Objective - Vital Signs/Intake and Output Vital Signs (last 24 hours): Temp Pulse Resp BP Pulse Ox 98.1 F 82 20 132/79 94 L 06/29/17 11:57 06/29/17 11:57 06/29/17 11:57 06/29/17 11:57 06/29/17 06:00 Intake and Output: 06/29/17 06/29/17 06:59 18:59 Intake Total 240 Output Total 3200 Balance -2960 - Medications Medications: Current Medications Aspirin (Ecotrin) 81 mg PO DAILY [facility] Last Admin: 06/29/17 09:18 Dose: 81 mg Atorvastatin Calcium (Lipitor) 40 mg PO DIN [facility] Last Admin: 06/28/17 17:44 Dose: 40 mg Clopidogrel Bisulfate (Plavix) 75 mg PO DAILY [facility] Last Admin: 06/29/17 09:18 Dose: 75 mg Duloxetine HCl (Cymbalta) 30 mg PO DAILY [facility] Last Admin: 06/29/17 09:18 Dose: 30 mg Gabapentin (Neurontin) 800 mg PO TID [facility] PRN Reason: Protocol Last Admin: 06/29/17 14:09 Dose: 800 mg Home Med (Home Med) 1 unit SL Q12 [facility] Last Admin: 06/29/17 09:18 Dose: 1 unit Insulin Human Regular (Humulin R Med) 0 units SC ACHS [facility] PRN Reason: Protocol Last Admin: 06/29/17 11:54 Dose: Not Given Lamotrigine (Lamictal) 25 mg PO DAILY [facility] PRN Reason: Protocol Last Admin: 06/29/17 09:18 Dose: 25 mg Losartan Potassium (Cozaar) 50 mg PO DAILY [facility] Last Admin: 06/29/17 09:19 Dose: 50 mg Metoprolol Tartrate (Lopressor) 25 mg PO BID [facility] Last Admin: 06/29/17 09:19 Dose: 25 mg Nicotine (Nicoderm Cq) 1 patch TD DAILY [facility] Last Admin: 06/29/17 09:16 Dose: 1 patch Ondansetron HCl (Zofran Inj) 4 mg IVP Q4H PRN PRN Reason: Nausea/Vomiting Oxycodone/Acetaminophen (Percocet 10/325 Mg Tab) 1 tab PO Q6H PRN PRN Reason: Pain, moderate (4-7) Last Admin: 06/29/17 14:08 Dose: 1 tab Tizanidine HCl (Zanaflex) 4 mg PO TID [facility] Last Admin: 06/29/17 14:09 Dose: 4 mg - Labs Labs: 06/29/17 06:30 06/29/17 06:30 Attending/Attestation - Attestation I have personally seen and examined this patient.: Yes I have fully participated in the care of the patient.: Yes I have reviewed all pertinent clinical information, including history, physical exam and plan: Yes Notes (Text): 06/29/17 15:08 Patient was seen and examined with medical imaging technologist. Agreed with assessment and plan. 47 year old male with PMH of hypertension, diabetes, hyperlipidemia , and chronic back pain was admitted with chest pain , found to have NSEMI, and underwent cardiac catherization, yesterday , had angioplasty and stent of Mid LAD.Patient remain stable after the procedure.He is pain free after the procedure. Continue ASA/Plavix/Metoprolol and lipitor Echo is pending, we will follow up Echo results. Management plan was discussed in detail with patient. Education was provided. 4 06/29/17 15:11
--- NOTE | 2017-06-29 19:25 | CARD ---
APPROVED REPORT EKG Measurement Heart [id number] DC [id number] <Conclusion> Normal sinus rhythm T wave abnormality, consider anterolateral ischemia Prolonged QT Abnormal ECG
[2017-06-30] MEDS: Oxycodone/Acetaminophen 10/325 mg Tab PO PRN ×2 (02:17→08:18)
[2017-06-30 06:23] VITALS: RESP 20; O2SAT 97
[2017-06-30 06:36] LABS: HEMOGLOBIN 16.2 g/dL (14.0-18.0); MEAN CELL VOLUME 90.9 fl (80.0-105.0); MEAN CORPUSCULAR HEMOGLOBIN 31.3 pg (25.0-35.0); MEAN CORPUSCULAR HGB CONC 34.4 g/dl (31.0-37.0); MEAN PLATELET VOLUME 9.4 fl (7.0-11.0); RBC 5.18 10^6/uL (3.5-6.1); RED CELL DISTRIBUTION WIDTH 13.4 % (11.5-14.5); WHITE BLOOD COUNT 8.9 10^3/ul (4.5-11.0)
[2017-06-30 07:16] LABS: ALB/GLOB RATIO 1.2 (1.1-1.8); ALBUMIN 4.2 g/dL (3.0-4.8); ALT/SGPT 35 U/L (7-56); AST/SGOT 30 U/L (17-59); BLOOD UREA NITROGEN 11 mg/dL (7-21); CALCIUM 10.1 mg/dL (8.4-10.5); GFR AFRICAN-AMERICAN > 60; GFR NON-AFRICAN AMERICAN > 60
[2017-06-30] MEDS: Insulin Reg-MEDIUM-Coverage SC SCH ×2 (07:30→11:30)
[2017-06-30] MEDS: BUPRENORPHINE 150 MCG SL SCH (09:36)
[2017-06-30] MEDS ORDERED: Potassium Chloride 20 mEq ER Tab PO ONE (11:52)
[2017-06-30 12:58] VITALS: BP 110/74; PULSE 77; TEMP 97.7
--- NOTE | 2017-06-30 13:27 | PN ---
DATE: REASON FOR CONSULTATION: Coronary artery disease, active tobacco abuse, status post NSTEMI. emergency angioplasty and PTCA of LAD with ANTONIA and intracoronary thrombus. SUBJECTIVE: The patient denies any chest pain, shortness of breath or any palpitation. Wants to go home. OBJECTIVE: GENERAL: Not in apparent distress. VITAL SIGNS: As follows, temperature afebrile, heart rate 100, and blood pressure 115/57. HEENT: PERRLA. Extraocular muscles intact. NECK: Supple. No carotid bruits or thyromegaly. CHEST: Clear to auscultation. HEART: S1 and S2, regular. ABDOMEN: Soft. EXTREMITIES: Clubbing and cyanosis negative. LABORATORY DATA: EKG showed T-wave inversion, anterolateral V2-V4. Blood workup as follows, WBC 8.9, hemoglobin 16.2, hematocrit 47.1, and platelet count 218. Chemistry shows sodium of 141, potassium of 3.0, chloride 104, carbon dioxide 24, anion gap of 17, BUN of 11, and creatinine of 0.7. Total protein 7.7, albumin 4.2, albumin/globulin ratio 1.2. IMPRESSION: Diabetes, hypertension, hyperlipidemia, active tobacco abuse, status post non-ST elevation myocardial infarction, status post primary angioplasty of left anterior descending with blood clot in the coronaries. RECOMMENDATIONS: Continue losartan. Continue atorvastatin. Continue aspirin. Continue Plavix. Continue metoprolol. We will get echo to assess LV function. Possible discharge home today. Thank you Dr. He for providing us the opportunity in taking care of the patient, Easton Sneed. Raven Ball MD SON
--- NOTE | 2017-06-30 16:41 | CARD ---
APPROVED REPORT EXAM: Two-dimensional and M-mode echocardiogram with Doppler and color Doppler. INDICATION S/P STEMI 2D DIMENSIONS Left Atrium (2D)3.8 (1.6-4.0cm)IVSd1.6 (0.7-1.1cm) LVDd5.0 (3.9-5.9cm)PWd1.3 (0.7-1.1cm) LVDs3.7 (2.5-4.0cm)FS (%) 26.2 % LVEF (%)51.2 (>50%) M-Mode DIMENSIONS Aortic Root3.90 (2.2-3.7cm)Aortic Cusp Exc.2.00 (1.5-2.0cm) Aortic Valve AoV Peak Wbwwmchm946.0cm/Brian Peak GR.6mmHg Mitral Valve MV E Hbzfbnbk56.7cm/sMV A Zabrwzwt35.3cm/sE/A ratio1.0 TDI Lateral E' Peak V9.55cm/sMedial E' Peak V5.95cm/sE/Lateral E'6.5 E/Medial E'10.4 Pulmonary Valve PV Peak Ktdooolu58.2cm/sPV Peak Grad.2mmHg Tricuspid Valve TR Peak [id number]/sRAP [id number] Peak Gr.12mmHg [id number] LEFT VENTRICLE The left ventricle is normal size. There is mild to moderate concentric left ventricular hypertrophy. Left ventricle systolic function is low normal.EF-50% There is mild hypokinesis in the apical anterior wall. The left ventricular diastolic function is normal. No left ventricle thrombus noted on this study. There is no ventricular septal defect visualized. There is no left ventricular aneurysm. There is no mass noted in the left ventricle. RIGHT VENTRICLE The right ventricle is normal size. There is normal right ventricular wall thickness. The right ventricular systolic function is normal. ATRIA The left atrium size is normal. The right atrium size is normal. The interatrial septum is intact with no evidence for an atrial septal defect. AORTIC VALVE The aortic valve is thickened but opens well. The aortic valve is mildly sclerotic. No aortic regurgitation is present. There is no aortic valvular stenosis. There is no aortic valvular vegetation. MITRAL VALVE The mitral valve is thickened but opens well. Mitral regurgitation is trace. There is no mitral valve stenosis. There is no evidence of mitral valve prolapse. TRICUSPID VALVE The tricuspid valve leaflets are thickened , but open well. There is trace tricuspid regurgitation.RVSP-22 mmof hG. There is no tricuspid valve stenosis. There is no tricuspid valve prolapse or vegetation. PULMONIC VALVE The pulmonary valve is normal in structure. There is no pulmonic valvular regurgitation. GREAT VESSELS The aortic root is normal in size. The ascending aorta is normal in size. The pulmonary artery is normal. The IVC is normal in size and collapses >50% with inspiration. PERICARDIAL EFFUSION There is no pleural effusion. There is no pericardial effusion. <Conclusion> The left ventricle is normal size. There is mild to moderate concentric left ventricular hypertrophy. Left ventricle systolic function is low normal.EF-50% Mitral regurgitation is trace. There is trace tricuspid regurgitation.RVSP-22 mmof hG. There is no pericardial effusion. S/p NSTEMI, S/p PTCA of LAD
--- NOTE | 2017-06-30 18:50 | CP.PCM.DIS ---
<Abbey Grigsby - Last Filed: 06/30/17 18:35> Provider - Provider Date of Admission: 06/28/17 15:55 Attending physician: Summer He MD Primary care physician: Angel Baker MD Consults: Dr. Justin Time Spent in preparation of Discharge (in minutes): 35 Diagnosis - Discharge Diagnosis (1) Chest pain Status: Acute Hospital Course - Lab Results Lab Results: Most Recent Lab Values WBC 8.9 10^3/ul (4.5-11.0) D 06/30/17 05:15 RBC 5.18 10^6/uL (3.5-6.1) 06/30/17 05:15 Hgb 16.2 g/dL (14.0-18.0) 06/30/17 05:15 Hct 47.1 % (42.0-52.0) 06/30/17 05:15 MCV 90.9 fl (80.0-105.0) 06/30/17 05:15 MCH 31.3 pg (25.0-35.0) 06/30/17 05:15 MCHC 34.4 g/dl (31.0-37.0) 06/30/17 05:15 RDW 13.4 % (11.5-14.5) 06/30/17 05:15 Plt Count 218 10^3/uL (120.0-450.0) 06/30/17 05:15 MPV 9.4 fl (7.0-11.0) 06/30/17 05:15 Gran % 59.6 % (50.0-68.0) 06/28/17 04:30 Lymph % (Auto) 32.9 % (22.0-35.0) 06/28/17 04:30 [facility] % (Auto) 6.7 % (1.0-6.0) H 06/28/17 04:30 Eos % (Auto) 0.3 % (1.5-5.0) L 06/28/17 04:30 Baso % (Auto) 0.5 % (0.0-3.0) 06/28/17 04:30 Gran # 3.82 (1.4-6.5) 06/28/17 04:30 Lymph # 2.1 (1.2-3.4) 06/28/17 04:30 [facility] # 0.4 (0.1-0.6) 06/28/17 04:30 Eos # 0.0 (0.0-0.7) 06/28/17 04:30 Baso # 0.03 K/mm3 (0.0-2.0) 06/28/17 04:30 Sodium 141 mmol/L (132-148) 06/30/17 05:15 Potassium 3.8 mmol/L (3.6-5.0) 06/30/17 05:15 Chloride 104 mmol/L (98-107) 06/30/17 05:15 Carbon Dioxide 24 mmol/L (21-33) 06/30/17 05:15 Anion Gap 17 (10-20) 06/30/17 05:15 BUN 11 mg/dL (7-21) 06/30/17 05:15 Creatinine 0.7 mg/dl (0.8-1.5) L 06/30/17 05:15 Est GFR ( Amer) > 60 06/30/17 05:15 Est GFR (Non-Af Amer) > 60 06/30/17 05:15 POC Glucose (mg/dL) 150 mg/dL (65-110) H 06/30/17 11:50 Random Glucose 119 mg/dL (70-110) H 06/30/17 05:15 Hemoglobin A1c 7.1 % (4.2-6.5) H 06/28/17 08:05 Calcium 10.1 mg/dL (8.4-10.5) 06/30/17 05:15 Magnesium 2.0 mg/dL (1.7-2.2) 06/28/17 04:30 Total Bilirubin 0.9 mg/dL (0.2-1.3) 06/30/17 05:15 AST 30 U/L (17-59) 06/30/17 05:15 ALT 35 U/L (7-56) 06/30/17 05:15 Alkaline Phosphatase 69 U/L (38-126) 06/30/17 05:15 Lactate Dehydrogenase 445 U/L (333-699) 06/28/17 04:30 Total Creatine Kinase 82 U/L (35-230) 06/28/17 04:30 Troponin I 2.97 ng/mL H* 06/28/17 21:15 Total Protein 7.7 g/dL (5.8-8.3) 06/30/17 05:15 Albumin 4.2 g/dL (3.0-4.8) 06/30/17 05:15 Globulin 3.4 gm/dL 06/30/17 05:15 Albumin/Globulin Ratio 1.2 (1.1-1.8) 06/30/17 05:15 Triglycerides 129 mg/dL (35-160) 06/28/17 08:05 Cholesterol 149 mg/dL (130-200) 06/28/17 08:05 LDL Cholesterol Direct 101 mg/dL (0-129) 06/28/17 08:05 HDL Cholesterol 32 mg/dL (29-60) 06/28/17 08:05 - Hospital Course Hospital Course: Upon admission: 47 year old male with past medical history of hypertension, diabetes, and dyslipidemia presents with sudden onset chest pain 4 hours ago. Patient states she was awoken from sleep with severe left sided chest pain that radiated to his jaw and back. Pain is intermittent in nature. Pain is alleviated by pain medication prescribed to the patient. He has never had a pain like this before. Patient immediately called the ambulance and was brought to the hospital. Patient received Aspirin in the ambulance. Patient is being followed by Dr. Justin as an outpatient. Patient recently had a normal stress test 2 months ago. Patient also had an echocardiogram which demonstrated an EF of 61% and no acute abnormalities. 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 Denies current chest pain, shortness of breath , nausea, vomiting, diarrhea, changes in vision, double vision, fever, chills, urinary/bladder incontinence, dysuria. Hospital course: Patient was admitted to r/o ACS. Patient was found to have 2nd troponin elevated. Patient was started on Lipitor, ASA, Plavix, Heparin drip, metoprolol , and Morphine prn for chest pain. Dr. West was consulted and cardiac cath was done. Two drug eluding stents were placed in the LAD. Echocardiogram was done and patient was told he could follow up with correctional manager for results. Patient's DM2 with associate Diabetic Neuropathy was managed with SSI-Medium and Accuchecks ACHS. Patient was placed on Carbohydrate Consistent Diet and Neurontin and Cymbalta were continued. HbA1c was 7.1. Patient's HTN was managed with home med Cozaar and HLD treated with home Lipitor. Lipid panel was within normal limits. Patient's chronic LBP was treated with home Percocet, Lamictal and Tizanidine. Patient was started on Nicotine CQ 14mg/day for tobacco witihdrawal and he was counseled on smoking cessation. Upon discharge: Patient stable for discharge per Dr. West and Dr. He. He was told to follow up with his PCP and and correctional manager. He was instructed to continue the new meds started during admission. Discharge Exam - Head Exam Head Exam: ATRAUMATIC, NORMAL INSPECTION, NORMOCEPHALIC - Eye Exam Eye Exam: EOMI, Normal appearance - ENT Exam ENT Exam: Mucous Membranes Moist - Respiratory Exam Respiratory Exam: Clear to PA & Lateral - Cardiovascular Exam Cardiovascular Exam: RRR, +S1, +S2. absent: Bradycardia, Tachycardia, Diastolic murmur, Systolic Murmur - GI/Abdominal Exam GI & Abdominal Exam: Unremarkable - Extremities Exam Extremities exam: normal inspection - Neurological Exam Neurological exam: Alert, Normal Gait, Oriented x3 - Psychiatric Exam Psychiatric exam: Normal Affect, Normal Mood - Skin Skin Exam: Dry, Intact, Normal Color, Warm Discharge Plan - Discharge Medications Prescriptions: Aspirin [Ecotrin] 81 mg PO DAILY #30 tabec Atorvastatin [Lipitor] 40 mg PO DIN #30 tab Clopidogrel [Plavix] 75 mg PO DAILY #30 tab Metoprolol Tartrate [Lopressor] 25 mg PO BID #60 tab - Follow Up Plan Condition: FAIR Disposition: HOME/ ROUTINE Instructions: Chest Pain (DC), How to Stop Smoking (DC), Coronary Intravascular Stent Placement (DC), Coronary Angioplasty (DC) Additional Instructions: Resume current medications. Follow up with Dr Ball in 2 weeks. Complete cessation of smoking. Referrals: Raven Ball MD [Staff Provider] - <Summer He - Last Filed: 07/01/17 06:50> Provider - Provider Date of Admission: 06/28/17 15:55 Attending physician: Summer He MD Primary care physician: Angel Baker MD Hospital Course - Lab Results Lab Results: Most Recent Lab Values WBC 8.9 10^3/ul (4.5-11.0) D 06/30/17 05:15 RBC 5.18 10^6/uL (3.5-6.1) 06/30/17 05:15 Hgb 16.2 g/dL (14.0-18.0) 06/30/17 05:15 Hct 47.1 % (42.0-52.0) 06/30/17 05:15 MCV 90.9 fl (80.0-105.0) 06/30/17 05:15 MCH 31.3 pg (25.0-35.0) 06/30/17 05:15 MCHC 34.4 g/dl (31.0-37.0) 06/30/17 05:15 RDW 13.4 % (11.5-14.5) 06/30/17 05:15 Plt Count 218 10^3/uL (120.0-450.0) 06/30/17 05:15 MPV 9.4 fl (7.0-11.0) 06/30/17 05:15 Gran % 59.6 % (50.0-68.0) 06/28/17 04:30 Lymph % (Auto) 32.9 % (22.0-35.0) 06/28/17 04:30 [facility] % (Auto) 6.7 % (1.0-6.0) H 06/28/17 04:30 Eos % (Auto) 0.3 % (1.5-5.0) L 06/28/17 04:30 Baso % (Auto) 0.5 % (0.0-3.0) 06/28/17 04:30 Gran # 3.82 (1.4-6.5) 06/28/17 04:30 Lymph # 2.1 (1.2-3.4) 06/28/17 04:30 [facility] # 0.4 (0.1-0.6) 06/28/17 04:30 Eos # 0.0 (0.0-0.7) 06/28/17 04:30 Baso # 0.03 K/mm3 (0.0-2.0) 06/28/17 04:30 Sodium 141 mmol/L (132-148) 06/30/17 05:15 Potassium 3.8 mmol/L (3.6-5.0) 06/30/17 05:15 Chloride 104 mmol/L (98-107) 06/30/17 05:15 Carbon Dioxide 24 mmol/L (21-33) 06/30/17 05:15 Anion Gap 17 (10-20) 06/30/17 05:15 BUN 11 mg/dL (7-21) 06/30/17 05:15 Creatinine 0.7 mg/dl (0.8-1.5) L 06/30/17 05:15 Est GFR ( Amer) > 60 06/30/17 05:15 Est GFR (Non-Af Amer) > 60 06/30/17 05:15 POC Glucose (mg/dL) 150 mg/dL (65-110) H 06/30/17 11:50 Random Glucose 119 mg/dL (70-110) H 06/30/17 05:15 Hemoglobin A1c 7.1 % (4.2-6.5) H 06/28/17 08:05 Calcium 10.1 mg/dL (8.4-10.5) 06/30/17 05:15 Magnesium 2.0 mg/dL (1.7-2.2) 06/28/17 04:30 Total Bilirubin 0.9 mg/dL (0.2-1.3) 06/30/17 05:15 AST 30 U/L (17-59) 06/30/17 05:15 ALT 35 U/L (7-56) 06/30/17 05:15 Alkaline Phosphatase 69 U/L (38-126) 06/30/17 05:15 Lactate Dehydrogenase 445 U/L (333-699) 06/28/17 04:30 Total Creatine Kinase 82 U/L (35-230) 06/28/17 04:30 Troponin I 2.97 ng/mL H* 06/28/17 21:15 Total Protein 7.7 g/dL (5.8-8.3) 06/30/17 05:15 Albumin 4.2 g/dL (3.0-4.8) 06/30/17 05:15 Globulin 3.4 gm/dL 06/30/17 05:15 Albumin/Globulin Ratio 1.2 (1.1-1.8) 06/30/17 05:15 Triglycerides 129 mg/dL (35-160) 06/28/17 08:05 Cholesterol 149 mg/dL (130-200) 06/28/17 08:05 LDL Cholesterol Direct 101 mg/dL (0-129) 06/28/17 08:05 HDL Cholesterol 32 mg/dL (29-60) 06/28/17 08:05 Attending/Attestation - Attestation I have personally seen and examined this patient.: Yes I have fully participated in the care of the patient.: Yes I have reviewed all pertinent clinical information, including history, physical exam and plan: Yes Notes (Text): 06/30/17 47 year old male with past medical history of hypertension, diabetes and dyslipidemia who presented with complaint of chest pain. He was found to have NSTEMI and started on heparin drip, aspirin, plavix, metoprolol and statin. He underwent cardiac cath with 2 stents placed in LAD. His symptoms improved and he is cleared for discharge by cardiology. Patient is discharged home to follow up with his pmd. Follow up with cardiology. Counselled on smoking cessation. Summer He MD Hospitalist.
== END 2017-06-30 15:11 | disposition home or self-care (01) | DRG 247 ==
LOC: ED 04:13 → ERH 07:36 → 2RSO 08:54 → OBSVTOIN 15:55 → INTOOBSV 06-29 15:35 → OBSVTOIN 06-29 15:35 → 2RSO 06-29 20:35
PROVIDERS: ADMIT Internal Medicine; ATTEND Internal Medicine
PROC: 027035Z Dilation of Coronary Artery, One Artery with Two Drug-eluting Intraluminal Devices, Percutaneous Approach (ICD-10-PCS; principal; 2017-06-28)
PROC: 4A023N7 Measurement of Cardiac Sampling and Pressure, Left Heart, Percutaneous Approach (ICD-10-PCS; 2017-06-28)
PROC: B211YZZ Fluoroscopy of Multiple Coronary Arteries using Other Contrast (ICD-10-PCS; 2017-06-28)
PROC: B215YZZ Fluoroscopy of Left Heart using Other Contrast (ICD-10-PCS; 2017-06-28)
DX: I21.4 Non-ST elevation (NSTEMI) myocardial infarction (principal); E11.40 Type 2 diabetes mellitus with diabetic neuropathy, unspecified; I25.10 Atherosclerotic heart disease of native coronary artery without angina pectoris; I10 Essential (primary) hypertension; E78.00 Pure hypercholesterolemia, unspecified; G89.29 Other chronic pain; M54.5 Low back pain; J44.9 Chronic obstructive pulmonary disease, unspecified; F17.210 Nicotine dependence, cigarettes, uncomplicated

== ENCOUNTER 2017-07-03 16:01 | Emergency (ER) | payer MEDICARE ==
[2017-07-03 16:17] VITALS: BMI 37.3
[2017-07-03 16:21] VITALS: RESP 18
--- NOTE | 2017-07-03 17:24 | ED PDOC ---
Arrival/HPI - General Chief Complaint: Abdominal Pain Time Seen by Provider: 07/03/17 16:26 Historian: Patient - History of Present Illness Narrative History of Present Illness (Text): 07/03/17 17:19 A 47 year old male, whose past medical history includes recent CA, diabetes and hypertension, presents to the emergency department complaining of persistent lower back pain for 3 days. Patient reports his pain has been constant since he was discharged from the hospital for an acute CA. He notes developing associated right upper abdominal pain. Patient was seen by PMD for same complaint and referred to the emergency room for evaluation of gallbladder. Patient denies any history of gallbladder disease. Patient denies any fever, chills, appetite changes, nausea, vomiting, diarrhea, urinary symptoms, chest pain, shortness of breath or any other complaints. PMD: Dr. Baker Time/Duration: Other (3 days) Symptom Course: Unchanged Context: Home Past Medical History - Provider Review Nursing Documentation Reviewed: Yes - Infectious Disease Hx of Infectious Diseases: None - Tetanus Immunization Tetanus Immunization: Unknown - Past Medical History Past Medical History: No Previous - Cardiac Hx CA: Yes Hx Hypertension: Yes - Pulmonary Hx Chronic Obstructive Pulmonary Disease (COPD): Yes Hx Emphysema: Yes - Endocrine/Metabolic Hx Diabetes Mellitus Type 2: Yes - Musculoskeletal/Rheumatological Hx Arthritis: Yes Hx Back Pain: Yes Hx Falls: No Hx Fractures: Yes Other/Comment: plate/screw in right leg. steel yvette in back. CIDP - Genitourinary/Gynecological Hx Prostate Problems: Yes (enlarged) - Psychiatric Hx Depression: Yes Hx Substance Use: No - Past Surgical History Past Surgical History: No Previous - Surgical History Hx Orthopedic Surgery: Yes Other/Comment: L foot sx - Anesthesia Hx Anesthesia: Yes Hx Anesthesia Reactions: No Hx Malignant Hyperthermia: No - Suicidal Assessment Feels Threatened In Home Enviroment: No Family/Social History - Physician Review Nursing Documentation Reviewed: Yes Family/Social History: No Known Family HX Smoking Status: Heavy Smoker > 10 Cigarettes Daily Hx Alcohol Use: Yes Frequency of alcohol use: Socially Hx Substance Use: No Hx Substance Use Treatment: No Allergies/Home Meds Allergies/Adverse Reactions: Allergies No Known Allergies Allergy (Verified 08/02/16 13:01) Home Medications: Home Meds Medication Instructions Recorded Confirmed Baclofen [Lioresal] 20 mg PO QID 04/14/13 07/03/17 Buprenorphine HCl [Belbuca] 150 mcg BC Q12 04/25/17 07/03/17 DULoxetine [Cymbalta] 60 mg PO DAILY 04/25/17 07/03/17 Gabapentin [Neurontin] 800 mg PO QID 04/25/17 07/03/17 Glipizide [Glipizide Xl] 10 mg PO BID 04/25/17 07/03/17 Losartan [Cozaar] 50 mg PO DAILY 04/25/17 07/03/17 Pantoprazole Sodium [Protonix] 40 mg PO DAILY 04/25/17 07/03/17 lamoTRIgine [Lamictal] 200 mg PO BID 04/25/17 07/03/17 oxyCODONE/Acetaminophen [Percocet 1 tab PO Q6 PRN 04/25/17 07/03/17 5/325 mg Tab] rOPINIRole [Requip] 2 mg PO BID 04/25/17 07/03/17 tiZANidine [Zanaflex] 4 mg PO TID 04/25/17 07/03/17 Cholecalciferol (Vitamin D3) 50,000 unit PO QWK 06/30/17 07/03/17 [Vitamin D3] Lidocaine 5% [Lidoderm] 1 patch TP Q12 06/30/17 07/03/17 Review of Systems - Physician Review All systems were reviewed & negative as marked: Yes - Review of Systems Constitutional: absent: Fevers, Night Sweats Respiratory: absent: SOB Cardiovascular: absent: Chest Pain Gastrointestinal: Abdominal Pain (right upper abdominal pain). absent: Diarrhea , Nausea, Vomiting, Appetite Changes Genitourinary Male: absent: Dysuria, Frequency, Hematuria Musculoskeletal: Back Pain (lower back pain) Physical Exam Vital Signs Reviewed: Yes Vital Signs Temp Pulse Resp BP Pulse Ox 07/03/17 16:20 98.5 F 80 18 124/74 95 Temperature: Afebrile Blood Pressure: Normal Pulse: Regular Respiratory Rate: Normal Appearance: Positive for: Well-Appearing, Non-Toxic, Comfortable, Other (Obese male) Pain Distress: Mild (due to persitent lower back pain) Mental Status: Positive for: Alert and Oriented X 3 - Systems Exam Head: Present: Atraumatic, Normocephalic Pupils: Present: PERRL Extroacular Muscles: Present: EOMI Conjunctiva: Present: Normal Mouth: Present: Moist Mucous Membranes Neck: Present: Normal Range of Motion Respiratory/Chest: Present: Clear to Auscultation, Good Air Exchange. No: Respiratory Distress, Accessory Muscle Use Cardiovascular: Present: Regular Rate and Rhythm, Normal S1, S2. No: Murmurs Abdomen: Present: Tenderness (Right upper quadrant tenderness to palpation), Normal Bowel Sounds, Other (Minimal ecchymosis noted to RLQ od abdomen superficial). No: Distention, Peritoneal Signs, Rebound, Guarding, Hernias, Mass/Organomegaly Back: Present: Other (tenderness across lower back, worse with movment) Upper Extremity: Present: Normal Inspection, Normal ROM, NORMAL PULSES. No: Cyanosis, Edema Lower Extremity: Present: Normal Inspection, NORMAL PULSES, Normal ROM. No: Edema, CALF TENDERNESS Neurological: Present: GCS=15, CN II-XII Intact, Speech Normal Skin: Present: Warm, Dry, Normal Color. No: Rashes Psychiatric: Present: Alert, Oriented x 3, Normal Insight, Normal Concentration Medical Decision Making ED Course and Treatment: 07/03/17 17:19 Impression: A 47 year old male with lower back and right upper abdominal pain. Plan: -- Gallbladder ultrasound -- Chest xray -- EKG -- Labs -- Urinalysis -- Toradol -- Reassess and disposition Progress Notes: 07/03/17 18:30 Labs and US negative for acute findings. Pain upon palpation and movement noted. ?Possibly Muscular strain s/p hospitalization and procedure 5 days ago. - Lab Interpretations Lab Results: 07/03/17 16:55 07/03/17 16:55 Lab Results 07/03/17 16:55: Sodium 142, Potassium 4.6, Chloride 104, Carbon Dioxide 27, Anion Gap 16, BUN 10, Creatinine 0.7 L, Est GFR ( Amer) > 60, Est GFR ( Non-Af Amer) > 60, Random Glucose 143 H, Calcium 9.5, Total Bilirubin 0.6, AST 30, ALT 46, Alkaline Phosphatase 56, Total Protein 6.9, Albumin 3.9, Globulin 2.9, Albumin/Globulin Ratio 1.4, Amylase 49, Lipase 55 07/03/17 16:55: Urine Color Yellow, Urine Appearance Clear, Urine pH 6.0, Ur Specific [place] >= 1.030, Urine Protein Negative, Urine Glucose (UA) Negative, Urine Ketones Trace H, Urine Blood Negative, Urine Nitrate Negative, Urine Bilirubin Negative, Urine Urobilinogen 0.2, Ur Leukocyte Esterase Negative 07/03/17 16:55: WBC 8.2, RBC 4.49, Hgb 14.1 D, Hct 41.8 L, MCV 93.1, MCH 31.4, MCHC 33.7, RDW 13.1, Plt Count 223, MPV 9.6, Gran % 70.2 H, Lymph % (Auto) 22.4 , [facility] % (Auto) 6.8 H, Eos % (Auto) 0.2 L, Baso % (Auto) 0.4, Gran # 5.78, Lymph # (Auto) 1.8, Stanley # (Auto) 0.6, Eos # (Auto) 0.0, Baso # (Auto) 0.03 I have reviewed the lab results: Yes - RAD Interpretation Radiology Orders: 07/03/17 16:32 CHEST PORTABLE [RAD] Stat 07/03/17 16:35 GALLBLADDER & COMMON DUCT [US] Stat - Medication Orders Current Medication Orders: Discontinued Medications Ketorolac Tromethamine (Toradol) 60 mg IM STAT STA Stop: 07/03/17 16:37 Last Admin: 07/03/17 17:04 Dose: 60 mg MAR Pain Assessment Document 07/03/17 17:04 [facility] [place]Rec: 07/03/17 17:04 [facility] [id number][place] Pain Reassessment Is this a pain reassessment? No Sleep Is patient sleeping during reassessment? No Presence of Pain Presence of Pain Yes Pain Scale Used Pain Scale Used Numeric Location Left, Right or Bilateral Right Upper or Lower Upper Pain Location Body Site Abdomen Description Description Sharp Intensity of Pain at present 7 IM Administration Charges Document 07/03/17 17:04 [facility] [place]Rec: 07/03/17 17:04 [facility] [place] [id number]) Charges for Administration # of IM Administrations 1 Disposition/Present on Arrival - Present on Arrival Any Indicators Present on Arrival: No History of DVT/PE: No History of Uncontrolled Diabetes: Yes Urinary Catheter: No History of Decub. Ulcer: No History Surgical Site Infection Following: Orthopedic Procedures - Disposition Have Diagnosis and Disposition been Completed?: Yes Diagnosis: Abdominal pain Disposition: HOME/ ROUTINE Disposition Time: 18:35 Patient Plan: Discharge Condition: STABLE Additional Instructions: Call Dr Baker tomorrow for further advice if pain persists. Return to ER if pain gets worse, or if vomiting or fever develop. Referrals: Angel Baker MD [Primary Care Provider] - Follow up with primary Forms: [employer]ent (Tanzanian)
[2017-07-03 17:40] LABS: BASO # 0.03 K/mm3 (0.0-2.0); BASO % 0.4 % (0.0-3.0); EOS % 0.2 % (1.5-5.0); GRAN # 5.78 (1.4-6.5); GRAN % 70.2 % (50.0-68.0); HEMOGLOBIN 14.1 g/dL (14.0-18.0); LYMPH # 1.8 (1.2-3.4); LYMPH % 22.4 % (22.0-35.0); MEAN CELL VOLUME 93.1 fl (80.0-105.0); MEAN CORPUSCULAR HEMOGLOBIN 31.4 pg (25.0-35.0); MEAN CORPUSCULAR HGB CONC 33.7 g/dl (31.0-37.0); MEAN PLATELET VOLUME 9.6 fl (7.0-11.0); MONO # 0.6 (0.1-0.6); MONO % 6.8 % (1.0-6.0); RBC 4.49 10^6/uL (3.5-6.1); RED CELL DISTRIBUTION WIDTH 13.1 % (11.5-14.5); WHITE BLOOD COUNT 8.2 10^3/ul (4.5-11.0)
[2017-07-03 17:41] LABS: URINE BILIRUBIN NEGATIVE (NEGATIVE); URINE BLOOD NEGATIVE (NEGATIVE); URINE GLUCOSE (UA) NEGATIVE (NEGATIVE); URINE LEUKOCYTE ESTERASE NEGATIVE Leu/uL (NEGATIVE); URINE NITRATE NEGATIVE (NEGATIVE); URINE PROTEIN NEGATIVE mg/dL (<30 mg/dL); URINE UROBILINOGEN 0.2 E.U./dL (<1 E.U./dL)
[2017-07-03 17:43] LABS: URINE APPEARANCE CLEAR (CLEAR); URINE COLOR YELLOW (YELLOW)
[2017-07-03 17:53] LABS: ALB/GLOB RATIO 1.4 (1.1-1.8); ALBUMIN 3.9 g/dL (3.0-4.8); ALT/SGPT 46 U/L (7-56); AMYLASE 49 U/L (35-125); AST/SGOT 30 U/L (17-59); BLOOD UREA NITROGEN 10 mg/dL (7-21); CALCIUM 9.5 mg/dL (8.4-10.5); GFR AFRICAN-AMERICAN > 60; GFR NON-AFRICAN AMERICAN > 60; LIPASE 55 U/L (23-300)
--- NOTE | 2017-07-03 18:21 | US ---
HISTORY: pain COMPARISON: None available. TECHNIQUE: Sonographic evaluation of the right upper quadrant of the abdomen. FINDINGS: Examination limited by bowel gas. LIVER: Measures 19.3 cm in length. Echogenic liver may be seen in setting of hepatic parenchymal disease or fatty infiltration. No focal hepatic mass identified. The main portal vein appears patent with normal directional flow. No intrahepatic bile duct dilatation. GALLBLADDER: Contracted gallbladder state limits evaluation. No gallstones. No sludge. No evidence of gallbladder wall thickening or pericholecystic edema. Positive sonographic Santos's sign as assessed by the stone polisher. COMMON BILE DUCT: Measures 6 mm. PANCREAS: Not well-visualized. RIGHT KIDNEY: Measures 13.4 x 6.3 x 5.9 cm. No obstructing calculus or hydronephrosis identified. AORTA: Limited visualization appears grossly unremarkable. IVC: Limited visualization appears grossly unremarkable. OTHER FINDINGS: None . IMPRESSION: Hepatomegaly. Echogenic liver may be seen in setting of hepatic parenchymal disease or fatty infiltration. Positive sonographic Santos sign as assessed by the stone polisher, however despite contacted gallbladder state no evidence of gallstones, sludge, gallbladder wall thickening, pericholecystic edema. Correlate clinically.
[2017-07-03 18:41] VITALS: BP 138/82; PULSE 74; TEMP 98; O2SAT 98
--- NOTE | 2017-07-03 18:50 | RAD ---
HISTORY: chest pain COMPARISON: Chest x-ray performed 06/28/17 TECHNIQUE: Chest, one view. FINDINGS: Examination limited by habitus. LUNGS: No focal consolidation. Please note that chest x-ray has limited sensitivity for the detection of pulmonary masses. PLEURA: No significant pleural effusion identified. No definite pneumothorax . CARDIOVASCULAR: Heart size appears within normal limits. OSSEOUS STRUCTURES: No acute osseous abnormality identified. VISUALIZED UPPER ABDOMEN: Unremarkable. OTHER FINDINGS: None. IMPRESSION: No focal consolidation, significant pleural effusion, or definite pneumothorax identified.
--- NOTE | 2017-07-07 14:51 | CARD ---
APPROVED REPORT EKG Measurement Heart [id number] <Conclusion> Normal sinus rhythm Normal ECG
== END 2017-07-03 18:46 | disposition home or self-care (01) ==
LOC: ED 16:01
DX: R10.9 Unspecified abdominal pain (principal); E11.9 Type 2 diabetes mellitus without complications; I10 Essential (primary) hypertension; I25.2 Old myocardial infarction; F17.210 Nicotine dependence, cigarettes, uncomplicated
CPT/HCPCS: 71045; 76705; 80053; 81003; 82150; 83690; 85025; 96372; 99283; J1885

== ENCOUNTER 2018-10-23 11:32 | Outpatient (CLI) | payer MEDICARE | END 2018-10-23 11:33 | disposition home or self-care (01) | LOC: RAD 11:32 | DX: G45.9 Transient cerebral ischemic attack, unspecified (principal) ==